=== PATIENT | female | born 1990 | race Caucasian/White ===

== ENCOUNTER 2016-11-28 12:22 | Emergency (ER) | payer OTHER ==
[2016-11-28 12:34] VITALS: BP 134/94
[2016-11-28 13:09] LABS: Basophils % (Auto) 0.6 % (0.0-1.8); Eosinophils % (Auto) 1.7 % (0.0-4.3); Hematocrit 33.6 % (30.3-42.9); Hemoglobin 10.9 gm/dl (10.1-14.3); Mean Corpuscular HGB Conc 32 % (30-34); Mean Corpuscular Hemoglobin 29 pg (28-32); Mean Corpuscular Volume 90 fl (79-97); Platelet Count 235 K/mm3 (140-440); Red Blood Count 3.74 M/mm3 (3.65-5.03); Red Cell Distribution Width 14.6 % (13.2-15.2); White Blood Count 4.3 K/mm3 (4.5-11.0)
[2016-11-28 13:30] LABS: Anion Gap 16 mmol/L; BUN/Creatinine Ratio 25; Blood Urea Nitrogen 10 mg/dL (7-17); Calcium 8.8 mg/dL (8.4-10.2); Carbon Dioxide 23 mmol/L (22-30); Chloride 105.2 mmol/L (98-107); Glucose 87 mg/dL (65-100); Sodium 140 mmol/L (137-145)
== END 2016-11-28 12:58 | disposition left against medical advice (07) ==
LOC: ED 12:22
DX: R07.9 Chest pain, unspecified (principal); Z53.21 Procedure and treatment not carried out due to patient leaving prior to being seen by health care provider
CPT/HCPCS: 36415; 80048; 84484; 84703; 85025; 93005; 93010

== ENCOUNTER 2017-05-14 18:48 | Emergency (ER) | payer MEDICAID ==
[2017-05-14 19:02] VITALS: BP 108/68
[2017-05-14 21:30] LABS: HCG Qualitative,Urine Negative (Negative)
[2017-05-14] MEDS ORDERED: MOTRIN PO ONE (23:18)
[2017-05-14] MEDS ORDERED: TYLENOL PO ONE (23:18)
--- NOTE | 2017-05-14 23:22 | Emergency Department Report ---
ED General Adult HPI - General Chief complaint: Back Pain/Injury Stated complaint: SHOULDER NECK AND BACK PAIN Time Seen by Provider: 05/14/17 22:37 Source: patient Mode of arrival: Ambulatory Limitations: No Limitations - Related Data Previous Rx's Medication Instructions Recorded Last Taken Type Acetaminophen [Tylenol Arthritis] 650 mg PO Q6HR PRN #30 tablet.er 05/14/17 Unknown Rx Ibuprofen [Motrin] 600 mg PO Q8H PRN #30 tablet 05/14/17 Unknown Rx Allergies Allergy/AdvReac Type Severity Reaction Status Date / Time No Known Allergies Allergy Unverified 11/28/16 12:29 ED Review of Systems ROS: Stated complaint: SHOULDER NECK AND BACK PAIN Other details as noted in HPI ED Past Medical Hx - Past Medical History Previous Medical History?: No - Surgical History Past Surgical History?: No - Social History Smoking Status: Current Every Day Smoker Substance Use Type: None - Medications Home Medications: Home Medications Medication Instructions Recorded Confirmed Last Taken Type Acetaminophen [Tylenol Arthritis] 650 mg PO Q6HR PRN #30 tablet.er 05/14/17 Unknown Rx Ibuprofen [Motrin] 600 mg PO Q8H PRN #30 tablet 05/14/17 Unknown Rx ED Physical Exam - General Limitations: No Limitations General appearance: alert, in no apparent distress - Head Head exam: Present: atraumatic, normocephalic - Eye Eye exam: Present: normal appearance, PERRL, EOMI, other (visual acuity intact to finger counting, color perception, reading at a close distance). Absent: nystagmus - ENT ENT exam: Present: normal exam, normal orophraynx, mucous membranes moist, normal external ear exam - Neck Neck exam: Present: normal inspection, full ROM. Absent: tenderness, meningismus - Respiratory Respiratory exam: Present: normal lung sounds bilaterally. Absent: respiratory distress - Cardiovascular Cardiovascular Exam: Present: regular rate, normal rhythm, normal heart sounds. Absent: systolic murmur, diastolic murmur, rubs, gallop - GI/Abdominal GI/Abdominal exam: Present: soft, normal bowel sounds. Absent: distended, tenderness, guarding, rebound, rigid, pulsatile mass - Extremities Exam Extremities exam: Present: normal inspection, full ROM, normal capillary refill. Absent: pedal edema, joint swelling, calf tenderness - Back Exam Back exam: Present: normal inspection, full ROM. Absent: paraspinal tenderness , vertebral tenderness - Neurological Exam Neurological exam: Present: alert, oriented X3, CN II-XII intact, normal gait, other (Extraocular movements intact. Tongue midline. No facial droop. Facial sensation intact to light touch in the V1, V2, V3 distribution bilaterally. 5 and 5 strength in 4 extremities.. Sensation is intact to light touch in 4 extremities.). Absent: motor sensory deficit - Psychiatric Psychiatric exam: Present: normal affect, normal mood - Skin Skin exam: Present: warm, dry, intact, normal color. Absent: rash ED Course Vital Signs 05/14/17 18:59 Temperature 98.3 F Pulse Rate 89 Respiratory 18 Rate Blood Pressure 108/68 O2 Sat by Pulse 100 Oximetry ED Medical Decision Making - Lab Data Vital Signs 05/14/17 18:59 Temperature 98.3 F Pulse Rate 89 Respiratory 18 Rate Blood Pressure 108/68 O2 Sat by Pulse 100 Oximetry Lab Results 05/14/17 Range/Units Unknown Urine HCG, Qual Negative (Negative) - Medical Decision Making Differential diagnosis, including not limited to: Encounter for test, muscular pain status post blunt trauma, sprain, strain Assessment and plan: 26-year-old female status post mild blunt trauma 72 hours ago. Has a GCS of 15, with an NIH score of 0, clinically sober, negative by Nexus criteria, negative by [place] C-spine rule, unremarkable physical exam, also with a negative test. She is neurologically intact, cognitively intact, and there does not appear to be an emergent condition at this time. Expectant management, return precautions. Critical care attestation.: If time is entered above; I have spent that time in minutes in the direct care of this critically ill patient, excluding procedure time. ED Disposition Clinical Impression: Neck pain, test negative Disposition: - TO HOME OR SELFCARE Is pt being admited?: No Does the pt Need Aspirin: No Condition: Good Instructions: Musculoskeletal Pain (ED) Additional Instructions: Rest, and avoid heavy lifting. Avoid strenuous physical activity. Take the pain medication as directed. Follow up with a primary care doctor within the next 2 weeks. Return to the ER right away with new pain, worsened pain, migration of pain, weakness, numbness, confusion, projectile vomiting, inability to tolerate liquid feeds. Referrals: ALISTAIR BERRY MD [Primary Care Provider] - 3-5 Days Forms: Work/School Release Form
== END 2017-05-14 23:37 | disposition home or self-care (01) ==
LOC: ED 18:48
DX: M54.2 Cervicalgia (principal); M54.9 Dorsalgia, unspecified; F17.200 Nicotine dependence, unspecified, uncomplicated
CPT/HCPCS: 81025; 99283